=== PATIENT | female | born 1960 | race Hispanic/Latino ===

== ENCOUNTER → 2019-01-14 | Outpatient (CLI) | payer MEDICARE | LOC: RAD 12:14 | PROVIDERS: ATTEND Internal Medicine Cardiovascular Disease | DX: R07.9 Chest pain, unspecified (principal); R94.31 Abnormal electrocardiogram [ECG] [EKG] | CPT/HCPCS: 93306 ==

== ENCOUNTER 2019-03-23 00:20 | Observation (INO) | payer MEDICARE ==
[~2019-03-23] VITALS: Ht 160 cm; Wt 108.9 kg
--- OUTSIDE RECORDS SUMMARY | 2019-03-23 00:23 | XMS REPORT ---
Author Author [facility] Address Unknown Phone Unavailable Care Team Providers Care Stockroom Supervisor Name Role Phone Unavailable Unavailable Payers Payer Name Policy Type Policy Number Effective Date Expiration Date Problems This patient has no known problems. Allergies, Adverse Reactions, Alerts Allergy Name Allergy Type Status Severity Reaction(s) Onset Date Inactive Date Treating Clinician Comments Penicillins DA Active U 2015-10-27 00:00:00 Medications This patient has no known medications. Encounters Start Date/Time End Date/Time Encounter Type Admission Type Attending Clinicians [facility] Care Department Encounter ID 2019-03-08 23:45:00 2019-03-08 23:45:00 Emergency E [id number]
--- NOTE | 2019-03-23 01:22 | Diagnostic Imaging Report ---
EXAMINATION: CHEST SINGLE (PORTABLE) INDICATION: ^CHEST PAIN ^[id number] ^[id number] ^Y COMPARISON: None FINDINGS: AP view TUBES and LINES: None. LUNGS: Limited by body habitus. Lungs are well inflated. There is no evidence of pneumonia or pulmonary edema. PLEURA: No pleural effusion or pneumothorax. HEART AND MEDIASTINUM: The cardiac silhouette is enlarged. BONES AND SOFT TISSUES: No acute osseous lesion. Soft tissues are unremarkable. UPPER ABDOMEN: No free air under the diaphragm. IMPRESSION: No acute thoracic abnormality. Signed by: Dr. Bill Rose MD on 03/23/2019 1:19 AM
[2019-03-23 01:37] LABS: BASOPHILS % 0.5 % (0.0-1.0); EOSINOPHILS # (AUTO) 0.2 (0.0-0.4); EOSINOPHILS % 3.6 % (0.0-6.0); HEMATOCRIT 39.5 % (34.2-44.1); HEMOGLOBIN 12.7 g/dL (12.0-16.0); INR 0.86; LYMPHOCYTES # (AUTO) 1.7 (1.0-3.2); LYMPHOCYTES % 30.1 % (18.0-39.1); MEAN CORPUSCULAR HEMOGLOBIN 30.5 pg (28-32); MEAN CORPUSCULAR HGB CONC 32.2 g/dL (31-35); MEAN CORPUSCULAR VOLUME 94.7 fL (81-99); MONOCYTES # (AUTO) 0.5 (0.2-0.8); MONOCYTES % 8.4 % (4.4-11.3); NEUTROPHILS # (AUTO) 3.2 (2.1-6.9); PARTIAL THROMBOPLASTIN TIME 28.1 seconds (23.8-35.5); PLATELET COUNT 268 x10e3/uL (140-360); PROTHROMBIN TIME 12.2 seconds (11.9-14.5); RED BLOOD COUNT 4.17 x10e6/uL (3.6-5.1); RED CELL DISTRIBUTION WIDTH 13.1 % (11.7-14.4)
[2019-03-23 01:49] LABS: ALANINE AMINOTRANSFERASE 35 IU/L (0-55); ALBUMIN 3.7 g/dL (3.5-5.0); ALBUMIN/GLOBULIN RATIO 1.2 (0.8-2.0); ALKALINE PHOSPHATASE 106 IU/L (40-150); ANION GAP 9.7 mmol/L (8-16); BLOOD UREA NITROGEN 15 mg/dL (7-26); BUN/CREATININE RATIO 21 (6-25); CALCIUM 8.9 mg/dL (8.4-10.2); CARBON DIOXIDE 28 mmol/L (22-29); CHLORIDE 106 mmol/L (98-107); CREATINE KINASE 133 IU/L (29-168); CREATININE, SERUM 0.72 mg/dL (0.57-1.11); EST GLOMERULAR FILTRATION RATE > 60 ML/MIN (60-); GLUCOSE 98 mg/dL (74-118); POTASSIUM 3.7 mmol/L (3.5-5.1); SODIUM 140 mmol/L (136-145)
[2019-03-23] MEDS ORDERED: SODIUM CHLORIDE 0.9% 50ML 50 ML ONE (02:51)
[2019-03-23] MEDS ORDERED: IOPAMIDOL 370 MG/ML 200 ML INFUS..BTL INJ ONE (02:51)
--- NOTE | 2019-03-23 03:00 | Diagnostic Imaging Report ---
EXAM: CT Chest WITH contrast (PE Protocol) INDICATION: ^PE PROTOCOL ^Y COMPARISON: Same day chest x-ray TECHNIQUE: Chest was scanned utilizing a multidetector helical scanner from the lung apex through the level of the diaphragm after administration of IV contrast. Thin section reconstructions were obtained with special concentration on the pulmonary arteries. Coronal and sagittal reformations were obtained. Dose modulation, iterative reconstruction, and/or weight based adjustment of the mA/kV was utilized to reduce the radiation dose to as low as reasonably achievable. Pulmonary embolism protocol was performed. IV CONTRAST: 100 mL of Omnipaque 370 COMPLICATIONS: None RADIATION DOSE: Total DLP: 531.62 mGy*cm Estimated effective dose: (DLP x 0.014 x size factor) mSv CTDIvol has been reviewed. It is below the limits set by the Radiation Protocol Committee (RPC). FINDINGS: LINES/ TUBES: None. LUNGS AND AIRWAYS: No filling defect is identified within the pulmonary arteries to the segmental level. Mild interstitial edema and dependent atelectasis. Airways are normal. PLEURA: The pleural spaces are clear. HEART AND MEDIASTINUM: The thyroid gland is normal. No mediastinal, hilar or axillary lymphadenopathy. The heart is normal in size.. There is no pericardial effusion. . Main pulmonary artery measures 3.2 cm in diameter and the ascending aorta measures 3.3 cm. UPPER ABDOMEN: Cholecystectomy. Small hiatal hernia. BONES: The visualized bony thorax is within normal limits. SOFT TISSUES: Unremarkable. IMPRESSION: No pulmonary emboli. Signed by: Dr. Bill Rose MD on 03/23/2019 2:56 AM
[2019-03-23] MEDS ORDERED: MORPHINE SULFATE 2 MG/ML SYR 1ML IV PRN (05:30)
[2019-03-23] MEDS ORDERED: SODIUM CHLORIDE FLUSH 10 ML SYR INJ PRN (05:30)
[2019-03-23] MEDS ORDERED: ASPIRIN 81 MG CHEW TAB PO ONE (05:30)
[2019-03-23] MEDS ORDERED: FAMOTIDINE 20 MG/2 ML VIAL IV SCH (05:30)
[2019-03-23] MEDS ORDERED: ONDANSETRON HCL INJ 2MG/ML 2ML 2 MG/ML VIAL IV PRN (05:30)
--- NOTE | 2019-03-23 05:39 | NUR ---
REPORT RECEIVED FROM ER NURSE CAITLIN. STATED TO GIVE PEPCID AND NOT ASPIRIN.
--- NOTE | 2019-03-23 05:50 | NUR ---
PT RECEIVED PATIENT FROM THE E.R. PER STRETCHER. ALERT AND ORIENTED. ON TELEMETRY. NO COMPLAIN AT THIS TIME.
[2019-03-23] MEDS ORDERED: PROPRANOLOL HCL10 MG PO (06:44)
[2019-03-23] MEDS ORDERED: VESICARE5 MG PO (06:44)
[2019-03-23] MEDS ORDERED: PANTOPRAZOLE SO40 MG PO (06:44)
[2019-03-23] MEDS ORDERED: ETODOLAC400 M1 (06:44)
[2019-03-23] MEDS ORDERED: ATORVASTATIN CA20 MG PO (06:44)
[2019-03-23] MEDS ORDERED: FAMOTIDINE20 MG PO (06:44)
[2019-03-23 07:00] VITALS: BP_SYST 118; BP_SYST 132; BP_DIAS 61; BP_DIAS 78
--- NOTE | 2019-03-23 07:30 | NUR ---
The pt. is in the bed with comp of pain in the chest but reports that she has had chest pain before. She denies pain radiation. Bed rails are elevated times 2 an the pt. advised to call for assistance as needed.
[2019-03-23 07:49] VITALS: BP 119/60
[2019-03-23] MEDS ORDERED: ASPIRIN 81 MG ENTERIC COATED PO SCH (09:00)
[2019-03-23 09:09] LABS: CREATINE KINASE 103 IU/L (29-168)
[2019-03-23 10:15] VITALS: BP 119/60
[2019-03-23 11:18] VITALS: BP 110/56
[2019-03-23] MEDS ORDERED: INDOCIN50 MG (11:21)
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
--- NOTE | 2019-03-23 15:03 | History and Physical ---
PRIMARY CARE PHYSICIAN: Dr. Roderick Nixon. TELEMARKETING FUNDRAISER: Dr. Olivier Alex. CHIEF COMPLAINT: Chest pain. HISTORY: A 58-year-old female with left-sided chest pain. Cardiac enzymes negative. The patient was seen by Dr. Diaz as an outpatient. The patient came to the hospital because of difficulty with outpatient workup. The patient does have baseline hypertension, reflux, and osteoarthritis. The patient did have CVA previously. 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 The patient is functional. Reflux, hypertension, dyslipidemia, and osteoarthritis. PAST SURGICAL HISTORY: Noncontributory. SOCIAL HISTORY: The patient does not smoke or use alcohol. No recreational drugs. ALLERGIES: PENICILLIN. HOME MEDICATIONS: 1. Lipitor. 2. Etodolac. 3. Pepcid. 4. Protonix. 5. Propranolol. 6. VESIcare. FAMILY HISTORY: Significant for coronary artery disease in her mother, who from coronary artery disease at a later age. Father with coronary artery disease as well. PHYSICAL EXAMINATION: VITAL SIGNS: Temperature is 98, blood pressure 119/60, pulse rate is 64, and respirations 18. GENERAL: The patient is not in acute distress. She is awake. HEENT: Normocephalic, atraumatic. Sclerae anicteric. NECK: Supple, grossly. PULMONARY: Diminished breath sounds without any wheezing. CARDIOVASCULAR: Regular rate and rhythm. ABDOMEN: Soft, nontender, and nondistended. EXTREMITIES: No cyanosis or edema. NEUROLOGIC: No gross focal deficits. LABORATORY DATA: Sodium is 140, potassium 3.7, chloride 106, bicarb 28, BUN 15, creatinine 0.7, and glucose 98. WBC is 5.6, hemoglobin 12.7, hematocrit 39.5, and platelets is 268. Cardiac enzyme has been negative. IMPRESSION: 1. Chest pain. 2. Hypotension and dyslipidemia. 3. Strong family history of coronary artery disease. PLAN: Echocardiogram. Continue with home medication. Consultation with Dr. Diaz. The patient will need stress test. MD SANDRA Leonard/ELEUTERIO /[id number]
== END 2019-03-23 12:30 | disposition home or self-care (01) ==
LOC: ER 00:20 → ERHOLD 05:26 → IMCU 05:54
PROVIDERS: ADMIT Internal Medicine; ATTEND Internal Medicine
DX: R07.89 Other chest pain (principal); R07.2 Precordial pain; Z88.0 Allergy status to penicillin; Z87.442 Personal history of urinary calculi; K21.9 Gastro-esophageal reflux disease without esophagitis; E78.5 Hyperlipidemia, unspecified; I69.351 Hemiplegia and hemiparesis following cerebral infarction affecting right dominant side; Z85.828 Personal history of other malignant neoplasm of skin; Z82.49 Family history of ischemic heart disease and other diseases of the circulatory system; Z82.3 Family history of stroke; I95.9 Hypotension, unspecified; E66.01 Morbid (severe) obesity due to excess calories; Z68.41 Body mass index [BMI] 40.0-44.9, adult
CPT/HCPCS: 36415; 71045; 71260; 80053; 82550; 82553; 83880; 84484; 85025; 85379; 85610; 85730; 93005; 93306; 99284; G0378; J2270; Q9967

== ENCOUNTER → 2025-05-30 | Outpatient (REF) | payer OTHER, MEDICARE ==
[~2025-05-30] MED LIST: ATORVASTATIN CA20 MG PO; ETODOLAC400 M1; FAMOTIDINE20 MG PO; INDOCIN50 MG; MOUNJARO12.5 MG/0.; PANTOPRAZOLE SO40 MG PO; PROPRANOLOL HCL10 MG PO; VESICARE5 MG PO
== END ==
LOC: RAD 11:36 → EDSTATUS 06-07 10:30
PROVIDERS: ATTEND Specialist
DX: Z01.810 Encounter for preprocedural cardiovascular examination (principal); M75.101 Unspecified rotator cuff tear or rupture of right shoulder, not specified as traumatic; I51.9 Heart disease, unspecified; Z86.73 Personal history of transient ischemic attack (TIA), and cerebral infarction without residual deficits
CPT/HCPCS: 93005

== ENCOUNTER → 2025-08-09 | Day surgery (SDC) | payer OTHER, MEDICARE ==
[2025-08-02 13:19] LABS: BASOPHILS % 1.0 % (0.0-1.0); EOSINOPHILS % 1.8 % (0.0-6.0); LYMPHOCYTES % 31.4 % (18.0-39.1); MONOCYTES % 5.9 % (4.4-11.3); NEUTROPHILS % 59.7 % (38.7-80.0); RED CELL DISTRIBUTION WIDTH 13.1 % (11.7-14.4)
[2025-08-02 13:39] LABS: EST GLOMERULAR FILTRATION RATE 79.0 ML/MIN (>=60)
[~2025-08-09] MED LIST changes: +ACETAMINOPHEN 1000 MG/100 ML 100 ML IV ONE; +FENTANYL CITRATE/PF 100MCG/2 ML INJ ONE; +LACTATED RINGER'S 1,000 ML ONE; +LIDOCAINE HCL 2% LOCAL INJ 5 ML SDV VIAL INJ ONE; +ONDANSETRON HCL INJ 2MG/ML 2ML 2 MG/ML VIAL ONE; +PROPOFOL IV EMULSION 10 MG/ML 20 ML VIAL ONE; +SEVOFLURANE INHAL SOLN 250 ML PEN BTL ONE
[2025-08-09 10:21] VITALS: TEMP 97.5
[2025-08-09 12:05] VITALS: BP 127/71; PULSE 70; RESP 16; O2SAT 94
== END | disposition home or self-care (01) ==
LOC: OR 08:09
PROVIDERS: ATTEND Specialist
DX: M75.121 Complete rotator cuff tear or rupture of right shoulder, not specified as traumatic (principal); S43.431A Superior glenoid labrum lesion of right shoulder, initial encounter; E11.9 Type 2 diabetes mellitus without complications; I25.10 Atherosclerotic heart disease of native coronary artery without angina pectoris; I25.2 Old myocardial infarction; I10 Essential (primary) hypertension; E78.5 Hyperlipidemia, unspecified; K21.9 Gastro-esophageal reflux disease without esophagitis; X58.XXXA Exposure to other specified factors, initial encounter; Z88.0 Allergy status to penicillin; Z01.812 Encounter for preprocedural laboratory examination; Z79.85 Long-term (current) use of injectable non-insulin antidiabetic drugs; Z79.899 Other long term (current) drug therapy; Z68.41 Body mass index [BMI] 40.0-44.9, adult; Z86.73 Personal history of transient ischemic attack (TIA), and cerebral infarction without residual deficits; E66.01 Morbid (severe) obesity due to excess calories
CPT/HCPCS: 29827; 36415 ×2; 80048; 82948; 85025; C1713 ×2; J0131; J0690; J2003; J2405; J2704; J3010; J7121